=== PATIENT | male | born 1990 | race Caucasian/White ===

== ENCOUNTER 2017-02-17 23:18 | Emergency (ER) | payer SELFPAY ==
[2017-02-17 23:19] VITALS: BP 140/80; PULSE 83; RESP 16; TEMP 99.5; O2SAT 98
== END 2017-02-17 23:46 | disposition left against medical advice (07) ==
LOC: NED 23:18
DX: Z53.20 Procedure and treatment not carried out because of patient's decision for unspecified reasons (principal)
CPT/HCPCS: 99281